=== PATIENT | female | born 1970 | race Two or more races ===

== ENCOUNTER 2024-06-26 13:45 | Outpatient (RCR) | payer MEDICAID, SELFPAY ==
--- NOTE | 2024-06-26 14:22 | PTNOTE_ITS ---
PT OP Initial Eval Patient Information Outpatient Physical Therapy Treatment Date: 06/26/24 Visit Reasons: Pain in RT knee Medical Diagnosis: Right Knee Pain Treatment Dx #1: Right Knee Pain Start of Care: 06/26/24 Date of Onset: 6 months months Smoking Status Smoking Status: Never smoker Initial Assessment Subjective: Pt is a 53 y/o female reports of chronic right knee pain worsening 6 months ago. Pt now notice the knee locking. Pt mentioned her knee is bone on bone and knee replacement was recommended, however, PCP wants a knee MRI first. Pt has limitation with sitting, standing, chores, self care, balance, walking, and performing recreational activities. Objective: Right Knee AROM: 0 deg to 120 deg with pain Right Knee MMTs: grossly 4/5 Right Hip MMTs: grossly 4-/5 Active SLR: 30 deg Assessment: Pt demonstrate right knee pain with mobility deficits leading to difficulty with ADLs. Pt will attempt physical therapy if pain persist Pt will be refer back to provider for further consultation. Short Term and Group Home Goals 1) Increase right knee AROM WNL in 6 wks to be able to perform chores 2) Decrease knee pain to 2/10 in 6 wks to be able to stand more than 30 mins 3) Increase right knee MMTs grossly to 4/5 in 6 wks to be able to perform stairs and steps 4) Increase right hip MMTs grossly to 4-/5 in 6 wks to be able to perform recreational activities 5) Indep with HEP Treatment Plan 1) Manual Therapy 2) Therapeutic Activities 3) Therapeutic Exercises 4) Modalities (ice, heat) 5) Balance Training Frequency and Duration: 2 x wk for 6 wks Certification Dates: 06/26/24 to 09/26/24 Procedure Charges OP PT Eval Mod Complex 30 minutes: Yes
--- NOTE | 2024-07-25 14:16 | PT.ODS1RPT ---
PT OP Progress/Discharge Note Date of Service: 07/25/24 Progress Note/DC Note Progress Note/Discharge Note: DC Note Patient Information Visit Reasons: Pain in RT knee Service Discharge Date: 07/25/24 Status Assessment: Pt has been seen for initial evaluation 06/26/24. Pt cx 07/07/24 appt. Pt has been contact regarding follow up appt without success. At this time Pt will be d/c from care due to non-compliance per attendance policy. Pt did not meet set goals in therapy; thank you for your referrals.
== END 2024-07-17 23:59 | disposition home or self-care (01) ==
LOC: CPTX 13:45
PROVIDERS: PCP Physician Assistant; Referring Provider Physician Assistant; Visit Provider Physician Assistant
DX: M25.561 Pain in right knee (principal); G89.29 Other chronic pain; R26.2 Difficulty in walking, not elsewhere classified; R26.89 Other abnormalities of gait and mobility
CPT/HCPCS: 97162

== ENCOUNTER 2025-03-09 08:52 | Outpatient (RCR) | payer MEDICAID, SELFPAY ==
--- NOTE | 2025-03-09 13:11 | PT.OIERPT ---
PT OP Initial Eval Patient Information Outpatient Physical Therapy Treatment Date: 03/09/25 Visit Reasons: PAIN IN LEFT KNEE Medical Diagnosis: Left Knee Pain Treatment Dx #1: Left Knee Pain Treatment Dx #2: Left Knee Pain Start of Care: 03/09/25 Smoking Status Smoking Status: Never smoker Initial Assessment Subjective: Pt is a 54 y/o female reports of chronic left knee pain (10/26). Pt mentioned her knee is bone on bone. Pt has difficulty with walking, standing, chores, self care, cooking, cleaning, and performing recreational activities. Objective: Left Knee AROM: 0 deg to 120 deg with pain Left Knee MMTs: grossly 4-/5 Left Hip MMTs: grossly 3+/5 SLS: unable due to pain Assessment: Pt demonstrate left knee pain with mobility deficits leading to difficulty with ADLs. Pt will benefit from physical therapy to increase ROM, strength, and work on mobility. Short Term and Animal Chiropractor Goals 1) Increase left knee AROM WFL in 6 wks to be able to perform chores 2) Decrease knee pain to 2/10 in 6 wks to be able to stand more than 30 mins 3) Increase left knee MMTs grossly to 4/5 in 6 wks to be able to perform squatting activities 4) Increase left hip MMTs grossly to 4-/5 in 6 wks to be able to walk more than 30 mins 5) Indep with HEP Treatment Plan 1) Manual Therapy 2) Therapeutic Activities 3) Therapeutic Exercises 4) Modalities (ice, heat) 5) Balance Training 6) Gait Training Frequency and Duration: 2 x wk for 6 wks Certification Dates: 03/09/25 to 06/09/25 Procedure Charges OP PT Eval Mod Complex 30 minutes: Yes
== END 2025-03-18 23:59 | disposition home or self-care (01) ==
LOC: CPTX 08:52
PROVIDERS: PCP Physician Assistant; Referring Provider Physician Assistant; Visit Provider Physician Assistant
DX: M25.562 Pain in left knee (principal); R26.2 Difficulty in walking, not elsewhere classified; G89.29 Other chronic pain
CPT/HCPCS: 97162

== ENCOUNTER 2025-04-03 14:30 | Outpatient (RCR) | payer MEDICAID, SELFPAY ==
--- NOTE | 2025-03-20 09:24 | PT.ODAYNRPT ---
PT Outpatient Daily Note OP Daily Note Outpatient Physical Therapy Treatment Date: 03/20/25 Visit Reasons: pain in left knee Subjective: Pt reports L knee is painful and does not tolerate walking or standing for prolonged periods. Objective: Please see flow sheet for ther ex list. Assessment: Pt demonstrates poor activity tolerance due to pain response. Applied MHP at end of session. Plan: Continue with poC. Length of Time (minutes) of Treatment: 30 Minutes Procedure Charges Therapeutic Exercise 30 minutes: Yes
--- NOTE | 2025-03-22 15:05 | PT.ODAYNRPT ---
PT Outpatient Daily Note OP Daily Note Outpatient Physical Therapy Treatment Date: 03/22/25 Visit Reasons: pain in left knee Subjective: Pt's knee is better about the same and continues to hurt. Objective: Please see flow chart for list of ther ex perfomed Assessment: tolerate supine exercises; unable to progress to closed chain exercises due to pain Plan: Continue with PT Length of Time (minutes) of Treatment: 30 Minutes Procedure Charges Therapeutic Exercise 30 minutes: Yes
--- NOTE | 2025-03-28 10:44 | PT.ODAYNRPT ---
PT Outpatient Daily Note OP Daily Note Outpatient Physical Therapy Treatment Date: 03/28/25 Visit Reasons: pain in left knee Subjective: Pt's left knee pain is the same. No change in overall symptoms. Objective: Please see flow chart for list of ther ex performed Assessment: no change in knee pain post PT session. Pt continues to exhibit limitation with all exercises due to pain Plan: Continue with PT Length of Time (minutes) of Treatment: 30 Minutes Procedure Charges Therapeutic Exercise 30 minutes: Yes
--- NOTE | 2025-03-30 11:36 | PT.ODAYNRPT ---
PT Outpatient Daily Note OP Daily Note Outpatient Physical Therapy Treatment Date: 03/30/25 Visit Reasons: pain in left knee Subjective: Pt's knee is hurting more than usual today. No change in activities at home Objective: Please see flow chart for list of ther ex performed Assessment: tolerate exercises with minimal increase in knee pain Plan: Continue with PT Length of Time (minutes) of Treatment: 30 Minutes Procedure Charges Therapeutic Exercise 30 minutes: Yes
--- NOTE | 2025-04-03 14:48 | PT.ODS1RPT ---
PT OP Progress/Discharge Note Date of Service: 04/03/25 Progress Note/DC Note Progress Note/Discharge Note: DC Note Patient Information Visit Reasons: pain in left knee Medical Diagnosis: Left Knee Pain Treatment Dx #1: Left Knee Pain Service Continue Service or Discharge: Discharge Discharge Date: 04/03/25 Status Subjective: Pt's left knee pain is worsening since starting physical therapy. Pt continues to have limitation with standing, walking, chores, self care, and performing recreational activities. Pt will like to stop physical therapy and follow up with PCP at the end of the month. Pt mentioned she throws up and feels sick after physical therapy due to the exercises. Objective: Left Knee AROM: 0 deg to 100 deg with pain Left Knee MMTs: grossly 4-/5 Left Hip MMTs: grossly 3+/5 SLS: unable due to pain Assessment: Pt continues to have left knee pain leading to difficulty with ambulation, ADLs, standing, and performing recreational activities. Pt will no longer benefit from physical therapy due to minimal progress towards goals. Pt was not instructed on HEP last session due to exercises completed in therapy was not effective. Pt instructed to follow up with PCP for further consultation; thank you for your referrals. Plan: D/C home and follow up with MD [id number] Procedure Charges Therapeutic Exercise 30 minutes: Yes
== END 2025-04-18 23:59 | disposition home or self-care (01) ==
LOC: CPTX 14:30
PROVIDERS: PCP Physician Assistant; Referring Provider Physician Assistant; Visit Provider Physician Assistant
DX: M25.562 Pain in left knee (principal); R26.2 Difficulty in walking, not elsewhere classified; G89.29 Other chronic pain
CPT/HCPCS: 97110